=== PATIENT | female | born 1975 | race Caucasian/White ===

== ENCOUNTER → 2019-11-09 11:02 | Outpatient (CLI) | payer OTHER, SELFPAY ==
--- NOTE | ~2019-11-09 | MM_ITS ---
EXAMINATION: MM screening lou BI w tasia HISTORY: Screening mammogram TECHNIQUE: Craniocaudal and mediolateral oblique 3-D tomosynthesis images were obtained and synthetic 2-D images were generated. CAD analysis was submitted and interpreted. COMPARISON: 02/16/2018, 11/23/2015 bilateral digital screening mammogram examinations BREAST PARENCHYMAL COMPOSITION: There are scattered areas of fibroglandular density. FINDINGS: Stable fibroglandular asymmetry. 3.5 x 6 mm circumscribed opacity at mid to posterior depth in the lower inner quadrant of the right b reast, diminished in size since 11/23/2015. Stable circumscribed benign-appearing intramammary lymph node is noted posteriorly in the outer mid r ight breast. Smaller stable benign upper outer intramammary lymph node of the left breast. There is n o evidence of suspicious mass, calcification, or architectural distortion to suggest malignancy in ei ther breast. There has been no suspicious interval change. IMPRESSION: 1. No mammographic evidence of malignancy. 2. Recommend routine screening mammography in one year. BI-RADS Category 2: Benign finding(s). Reviewed, dictated and finalized at location A. HERY MAN
== END ==
PROVIDERS: PCP Emergency Medicine; Visit Provider Emergency Medicine
DX: Z12.31 Encounter for screening mammogram for malignant neoplasm of breast (principal)
CPT/HCPCS: 77063; 77067

== ENCOUNTER 2021-02-27 09:30 | Outpatient (CLI) | payer OTHER, SELFPAY ==
--- NOTE | ~2021-02-27 | US_ITS ---
EXAMINATION: US transvaginal DATE: 02/27/2021 10:04 INDICATION: Menorrhagia Comparison:Ultrasound dated 12/05/2015 TECHNIQUE: Multiple endovaginal sonographic images of the pelvis performed. FINDINGS: The uterus measures 9.6 x 5.6 x 5.7 cm. The endometrial complex measures 7 mm. The right ovary measures 2.3 x 1.3 x 1.6 cm and the left ovary measures 2.8 x 1.3 x 1.2 cm. There ar e small follicles in each ovary. Normal doppler signal in both ovaries. There is no free fluid in the pelvis. There are no abnormal masses seen on either side. IMPRESSION: 1. Unremarkable pelvic ultrasound. Reviewed, dictated and finalized at location A.
== END 2021-02-27 09:31 ==
PROVIDERS: Visit Provider Obstetrics & Gynecology Gynecology
DX: N92.0 Excessive and frequent menstruation with regular cycle (principal)
CPT/HCPCS: 76830

== ENCOUNTER 2021-03-12 08:08 | Outpatient (CLI) | payer OTHER, SELFPAY ==
--- NOTE | ~2021-03-12 | MMUS_ITS ---
EXAMINATION: MM diagnostic lou BI w tasia, US breast BI complete HISTORY: Right axillary pain, result 2 months ago, interval left axillary pain TECHNIQUE: ML, MLO and craniocaudal full field and spot 3-D tomosynthesis images of both breasts were performed and synthetic 2-D images were generated. CAD analysis was submitted and interpreted. High resolution complete bilateral breast ultrasound was performed. COMPARISON: Numerous , 02/16/2018, 11/23/2015 bilateral digital screening mammogram examinati ons FINDINGS: MAMMOGRAPHIC FINDINGS: Stable circumscribed lobular mass in the very posterior upper outer right breast, unchanged since 11/03. An approximately 11 mm circumscribed mass in the lower mid right breast (craniocaudal spot Tomosynthe sis image 16/61, MLO Tomosynthesis image 35/66, CC Tomosynthesis image 14/73). Approximately 13 mm circumscribed mass in the lower outer right breast near junction of the anterior and middle thirds) MLO Tomosynthesis image 29/70). Approximately 11 mm mass density is noted in the left upper mid breast (craniocaudal Tomosynthesis im age 40/66, craniocaudal Tomosynthesis 43/73). No suspicious calcifications, architectural distortion, skin thickening or retraction of either breas t. ULTRASOUND: Right breast: 1:00 4 cm from nipple: 1.8 x 3.3 x 4.3 mm cyst 3:00 7 cm from nipple: Circumscribed 2.6 x 2.3 mm hypoechoic lesion without suspicious shadowing 6:00 3 cm from nipple: 8.6 x 6.5 x 8.2 mm simple cyst Subareolar right breast: 6.3 x 5.1 x 5.3 mm cyst Subareolar right breast: Septated 8.8 x 5.6 x 11 mm cyst 10:00 4 cm from nipple: 5.8 x 12 x 12 mm simple cyst 11:00 3 cm from nipple: 2.3 x 7.3 x 7 mm cyst Left breast: 12:00 1 cm from nipple: Irregular hypoechoic lesion measuring 6.8 x 5.3 x 3.5 mm, without internal va scularity 12:00 2 cm from nipple: 3 x 6.5 x 5.4 mm cyst Subareolar left breast: 9 x 9 x 7 mm simple cyst with through transmission posterior enhancement Subareolar left breast: 5.3 x 6.8 mm simple cyst with through transmission posterior enhancement 11:00 1 cm from nipple: 7 x 13.5 mm multi septated cyst or cluster of cysts. No internal vascularity or suspicious shadowing. IMPRESSION: 1. Left breast 12:00 1 cm from nipple: Sonographic approximately 7 mm irregular hypoechoic area 2. Ultrasound-guided biopsy is recommended BI-RADS category 4, suspicious finding. Dr. Cook telephoned the report and ultrasound guided biopsy recommendation to Dr. Hernandez's on 021 at hours. Reviewed, dictated and finalized at location A. IMPRESSION: 1. Left breast 12:00 1 cm from nipple: Sonographic approximately 7 mm irregular hypoechoic area 2. Ultrasound-guided biopsy is recommended BI-RADS category 4, suspicious finding. Dr. Cook telephoned the report and ultrasound guided biopsy recommendation to Carla Callahan on 03/12/2021 at hours.
== END 2021-03-12 08:09 ==
PROVIDERS: PCP Emergency Medicine; Visit Provider Obstetrics & Gynecology Gynecology
DX: N64.4 Mastodynia (principal); R92.8 Other abnormal and inconclusive findings on diagnostic imaging of breast
CPT/HCPCS: 76641; 77062; 77066; G0279

== ENCOUNTER 2021-04-23 09:13 | Outpatient (CLI) | payer OTHER, SELFPAY ==
--- NOTE | ~2021-04-23 | US_ITS ---
EXAMINATION: US venous doppler LE BI EXAM DATE: 04/23/2021 10:23 INDICATION: Venous insufficiency. TECHNIQUE: Multiple grayscale, color flow and Doppler images of the lower extremity venous systems bi laterally were obtained and reviewed. Saphenous venous mapping. The exam was reviewed on 04/23/2021. There is no prior study for comparison. FINDINGS: Right side: The right common femoral, femoral and profunda veins demonstrate normal color flow, respi ratory variation, augmentation and compressibility. Compressibility, color flow confirmed within the right popliteal, posterior tibial, peroneal, and greater saphenous veins. Right Standing Venous Mapping: reflux seconds duration; vein size. Greater saphenous origin: 0 seconds; 3.4 mm. Greater saphenous mid thigh:------ 0 seconds; 2.9 mm. Greater saphenous below knee:--- 0.5 seconds; 2.7 mm. Lesser saphenous proximally:------ 0 seconds; 2.0 mm. Lesser saphenous distally: 0 seconds; 1.5 mm. Left side: The left common femoral, femoral and profunda veins demonstrate normal color flow, respira tory variation, augmentation and compressibility. Compressibility, color flow confirmed within the l eft popliteal, posterior tibial, peroneal, and greater saphenous veins. Left Standing Venous Mapping: reflux seconds duration; vein size. Greater saphenous origin: 0 seconds; 4.4 mm. Greater saphenous mid thigh:------ 0 seconds; 3.1 mm. Greater saphenous below knee:--- 0 seconds; 2.9 mm. Lesser saphenous proximally:------ 0 seconds; 1.7 mm. Lesser saphenous distally: 0 seconds; 3.0 mm. IMPRESSION: 1. No lower extremity deep venous thrombosis bilaterally. 2. Short duration right greater saphenous reflux at the calf. Reviewed, dictated and finalized at location A. [facility] signed by Rloo Denis M.D. on 04/23/2021 17:57 CDT
== END 2021-04-23 09:14 | disposition home or self-care (01) ==
PROVIDERS: PCP Emergency Medicine; Visit Provider Emergency Medicine
DX: I87.2 Venous insufficiency (chronic) (peripheral) (principal)
CPT/HCPCS: 93970

== ENCOUNTER 2021-05-10 01:47 | Day surgery (SDC) | payer OTHER, SELFPAY ==
[2021-04-06 10:25] VITALS: BMI 38.6
[2021-05-03 14:11] VITALS: BMI 38.4
--- NOTE | 2021-05-07 18:14 | WPDANESEPP ---
Anes - Eval Pre Procedure Procedure: Operation Date: 05/10/21 10:30 Proposed Procedures p Hysteroscopy Dilation and Curettage - Gege Hernandez MD Date/Time: 05/07/21 18:14 Pre Op Diagnosis: menorrhagia Patient Data Age: 45 Gender: F Height: 1.6 m Weight: 98.43 kg Allergies Allergy/AdvReac Type Severity Reaction Status Date / Time No Known Allergies Allergy Verified 12/21/20 13:13 Home Medications Medication Instructions Recorded Confirmed Type Adult Multivitamin with Iron 1 tablet PO DAILY 04/06/21 04/06/21 History Patient hx anesthesia problems: none Family hx anesthesia problems: none PMFSH Past Medical History Medical History (Updated 05/07/21 @ 18:14 by Adam Martínez DO) Celiac disease Frequency of urination Left hip pain Trochanteric bursitis of left hip Vision abnormalities Wears glasses Surgical History Surgical History (Updated 12/21/20 @ 14:08 by Quyen Cutler) History of loop electrosurgical excision procedure (LEEP) History of root canal procedure Family History Family History (Updated 12/22/20 @ 08:30 by Emi Lunsford, RT(R)) Unknown Asthma Hypertension Depression Cerebrovascular accident HLD (hyperlipidemia) Arthritis Other Dementia Lymphedema Social History Social History (Updated 12/22/20 @ 08:30 by Emi Lunsford, RT(R)) Smoking status: Never smoker Alcohol intake: never Substance use: never Substance use type: does not use Gender identity (if verbalized by the patient): Female Spiritual care concerns: No Exam Day of Procedure 05/07/21 18:14
--- NOTE | 2021-05-10 07:58 | WPDHPUPDATE1 ---
History and Physical Update Update Date/Time: 05/10/21 07:58 History and Physical has been reviewed, including an updated exam of the patient. There are NO changes in the patient's condition. Risks, benefits, and alternatives have been discussed and questions answered. Patient agrees to proceed with procedure.
--- NOTE | 2021-05-10 07:58 | PM.HPGS ---
History of Present Illness History of Present Illness Consent: Risks, benefits, and alternatives have been discussed and questions answered. Patient agrees to proceed with procedure. Chief complaint: menorrhagia Narrative: Maite Pruitt is a 45 year old female with menorrhagia. Patient cycles remain approximately every 30 to 60 days last for 5 to 7 days but during her cycle she changes pads every 20minutes to the 1hour for [id number] and occasionally longer. Pelvic ultrasound was normal. It was recommended to proceed with further workup with hysteroscopy D&C. Risks of infection, bleeding, perforation, and possible pathology were reviewed. Patient voices understanding and agrees to proceed. This was previously scheduled in April and has had to be rescheduled twice. Review of Systems Constitutional: Constitutional: Reports fatigue and Reports other ( Hot flashes and night sweats) Musculoskeletal: Musculoskeletal: Reports arthralgias PMFSH Past Medical History Medical History (Updated 05/10/21 @ 08:04 by Gege Hernandez MD) Celiac disease Migraine (normal spontaneous vaginal delivery) Status post hysteroscopy 2015 Trochanteric bursitis of left hip Surgical History Surgical History (Updated 12/21/20 @ 14:08 by Quyen Cutler) History of loop electrosurgical excision procedure (LEEP) History of root canal procedure Family History Family History (Updated 12/22/20 @ 08:30 by Emi Lunsford, RT(R)) Unknown Asthma Hypertension Depression Cerebrovascular accident HLD (hyperlipidemia) Arthritis Other Dementia Lymphedema Social History Social History (Updated 12/22/20 @ 08:30 by Emi Lunsford RT(R)) Smoking status: Never smoker Alcohol intake: never Substance use: never Substance use type: does not use Living arrangements: with family Gender identity (if verbalized by the patient): Female Spiritual care concerns: No Meds Home Medications and Allergies Home Medications Medication Instructions Recorded Confirmed Type Adult Multivitamin with Iron 1 tablet PO DAILY 04/06/21 04/06/21 History Allergies Allergy/AdvReac Type Severity Reaction Status Date / Time No Known Allergies Allergy Verified 12/21/20 13:13 Exam Const: General: healthy appearing and alert Orientation/consciousness: patient oriented x3 Resp: Effort & Inspection: normal respiratory effort Auscultation: clear to auscultation bilaterally Cardio: Rate: regular rate Rhythm: regular rhythm GI: GI Palp: Yes Soft to palpation, No Tenderness to palpation present (GI) and No Palpable mass present : External Female Exam: normal external appearance Speculum Exam - Vagina: normal appearance of the vagina and normal vaginal discharge Speculum Exam - Cervix: normal appearance of the cervix Bimanual exam- vagina & uterus: uterine size normal and consistency normal Bimanual Exam- Adnexa, other: normal adnexae and No adnexal tenderness Neuro: General: patient oriented x3 Assessment and Plan Assessment and plan (1) Menorrhagia: Code(s): N92.0 - Excessive and frequent menstruation with regular cycle Status: Acute Assessment and Plan: plan to proceed with D&C hysteroscopy
[2021-05-10 08:42] VITALS: BP 144/82; PULSE 80; RESP 16; TEMP 36.5; O2SAT 96
[2021-05-10] MEDS: ACETAMINOPHEN 500 MG TABLET 1000 MG PO (08:57)
[2021-05-10] MEDS: LACTATED RINGERS 1,000 ML 30 ML IV CONT (09:03)
--- NOTE | 2021-05-10 09:23 | P.PNAN_ITS ---
Anes - Eval Final PreProcedure Day of Procedure 05/10/21 09:23 Patient weight: obese Heart: regular rate and rhythm Lungs: clear to auscultation Airway: Mallampati scale class II Neurological: alert and oriented Last oral intake: >/= 8 hours ASA classification: III Emergent: no Anesthetic plan: proceed Anesthesia type and monitoring: general GIVS and standard monitoring Informed Consent: The patient's anesthetic plan and its attendant risks and b enefits were discussed with the patient/family/POA. Questions were solicited and answers provided to the satisfaction of the patient/family/POA.
[2021-05-10] MEDS: KETOROLAC 30 MG/ML VIAL (*BKC) IV PUSH (10:18)
--- NOTE | 2021-05-10 10:30 | W.PM.PROC2 ---
Procedure Note - Detailed Date of Procedure 05/10/21 Pre-op Diagnosis menorrhagia Post-op Diagnosis same Procedure Performed D&C hysteroscopy Surgeon Gege Hernandez MD Anesthesia MAC and local Findings uterus sounds to 9cm the endometrium appears normal except for posteriorly there is a long thin polyp Description of Procedure the patient is taken to the operating room and placed under anesthesia in the dorsal lithotomy position. She was prepped and draped in usual sterile fashion. [place] speculum was placed in the vagina, cervix is grasped on the anterior lip with a tenaculum, and the cervix is injected with 1% lidocaine. The uterus is sounded to 9cm and the cervix is serially dilated with [place]. The diagnostic hysteroscope was placed with the stated findings. The polyp forceps were used to remove the polyp in pieces. The hysteroscope is replaced and the polyp was noted to be absent. The hysteroscope was removed and the medium sharp curette used to sharply curette the endometrium until a good uterine cry was noted in all areas. All instruments are removed. The sponge, needle, and instrument counts are correct per the OR staff. The patient is awakened from anesthesia and taken to recovery in stable condition. Estimated Blood Loss 5 Drains No Packing No Pathology yes ( Endometrial curetting) Complications No immediate complications Condition stable Disposition PACU
[2021-05-10 10:35] VITALS: BP 108/65; PULSE 65; RESP 12; O2SAT 96
[2021-05-10] MEDS: fentaNYL CITRATE INJ (*CRX) 100 MCG/2 ML VIAL 25 MCG IV PUSH ×3 (10:39→11:01)
[2021-05-10 11:05] VITALS: BP 122/65; PULSE 53; RESP 14
[2021-05-10 11:35] VITALS: BP 122/65; PULSE 54; RESP 14
[2021-05-10 12:05] VITALS: BP 123/68; PULSE 61; RESP 14
== END 2021-05-10 12:21 | disposition home or self-care (01) ==
PROVIDERS: PCP Emergency Medicine; Visit Provider Obstetrics & Gynecology Gynecology
PROC: 0U5B8ZZ Destruction of Endometrium, Via Natural or Artificial Opening Endoscopic (ICD-10-PCS; CPT 58563; principal; 2021-05-10 10:30)
DX: N92.0 Excessive and frequent menstruation with regular cycle (principal); N84.0 Polyp of corpus uteri; E66.9 Obesity, unspecified; Z68.38 Body mass index [BMI] 38.0-38.9, adult; K90.0 Celiac disease
CPT/HCPCS: 58558; 88305; A9270; J1885; J2250; J2405; J2704; J3010; J7030; J7120